=== PATIENT | male | born 1965 | race Asian ===

== ENCOUNTER 2020-02-20 09:26 | Emergency (ER) | payer MEDICAID, SELFPAY ==
[~2020-02-20] VITALS: Ht 180.3 cm; Wt 77.1 kg
--- NOTE | 2020-02-20 09:30 | NUR ---
Pt placed in the tent at this time
--- NOTE | 2020-02-20 09:32 | NUR ---
Pt brought by family,A&Ox4, pt presents to ER with cough/SOB/diarrhea/sore throat, pt took tylenol pruior arrival,current temp 98.9, skin pink and warm, respirations even and unlabored.
[2020-02-20 09:39] VITALS: BP_SYST 153
--- NOTE | 2020-02-20 09:40 | NUR ---
Dr Tejada assessing patient in the tent
[2020-02-20 09:49] VITALS: BP_SYST 153
--- NOTE | 2020-02-20 09:55 | NUR ---
Patient given written and verbal discharge instructions and verbalizes understanding. ER MD discussed with patient the results and treatment provided. Patient in stable condition. ID arm band removed. Rx of Azithromycin and Dexamethasone given. Patient educated on pain management and to follow up with PMD. Pain Scale 0/10 . Opportunity for questions provided and answered. Medication side effect fact sheet provided.
== END 2020-02-20 09:55 | disposition home or self-care (01) ==
LOC: SED 09:26
DX: R05 Cough (principal); R50.9 Fever, unspecified; R07.89 Other chest pain; Z20.828 Contact with and (suspected) exposure to other viral communicable diseases
CPT/HCPCS: 99283